=== PATIENT | male | born 1990 | race Caucasian/White ===

== ENCOUNTER → 2017-09-21 08:21 | Outpatient (CLI) | payer BC ==
[~2017-09-21 08:21] MED LIST: HYDROCODON-ACE1 EAC7 PO; OMEPRAZOLE CAP 20M PO; OMEPRAZOLE20 M1 PO; PEPCID AC20 MG PO
[2017-09-21 09:13] LABS: ALBUMIN 4.4 g/dL (3.4-5.0); BILIRUBIN - DIRECT 0.24 mg/dL (0.00-0.30); BILIRUBIN - INDIRECT 0.73 mg/dL (0.00-1.00); BILIRUBIN - TOTAL 0.97 mg/dL (0.2-1.3); PROTEIN - SERUM 7.9 g/dL (6.4-8.2)
[2017-11-14 06:13] VITALS: BMI 32.2
== END | disposition home or self-care (01) ==
LOC: D.LAB 08:21 → D.US 09:00
PROVIDERS: Internal Medicine Gastroenterology
DX: R10.9 Unspecified abdominal pain (principal); R19.7 Diarrhea, unspecified

== ENCOUNTER 2017-11-14 06:00 | Day surgery (SDC) | payer BC ==
[~2017-11-14] VITALS: Ht 177.8 cm; Wt 101.6 kg
[~2017-11-14 06:00] MED LIST changes: -HYDROCODON-ACE1 EAC7 PO
[2017-11-14 06:13] VITALS: BP 124/64; Ht 177.8 cm; Wt 101.6 kg
[2017-11-14] MEDS ORDERED: HYDROCODON-ACE1 EAC7 PO (08:55)
== END 2017-11-14 12:35 | disposition home or self-care (01) ==
LOC: D.OPS 06:00 → D.PAN 08:00 → D.OPS 12:35
DX: K82.8 Other specified diseases of gallbladder (principal)